=== PATIENT | male | born 1945 | race Caucasian/White ===

== ENCOUNTER 2018-10-14 12:34 | Emergency (ER) | payer MEDICARE, OTHER ==
--- NOTE | 2018-10-14 12:51 | EDM.PDOC ---
ED HPI GENERAL MEDICAL PROBLEM - General Chief Complaint: Chest Pain Stated Complaint: [place] Time Seen by Provider: 10/14/18 12:43 Source of Information: Reports: Patient, EMS, Family, RN Notes Reviewed History Limitations: Reports: No Limitations - History of Present Illness INITIAL COMMENTS - FREE TEXT/NARRATIVE: 72-year-old gentleman presents to the emergency department today with complaint of chest pain he describes the pain as squeezing center of his chest pain occurred while he was sitting watching TV was not exerting himself, he did take an aspirin by himself, EMS services were called they provided 1 nitroglycerin and 100 g of fentanyl he is pain-free at this time. He has known history of COPD but believes he was not any more short of breath than usual no nausea vomiting no diaphoresis does have a history of coronary artery bypass grafting approximately 20 years ago last stress test he believes was probably 10 years ago - Related Data Allergies Allergy/AdvReac Type Severity Reaction Status Date / Time No Known Allergies Allergy Verified 10/14/18 12:46 Home Meds: Home Meds *Atorvastatin 10/14/18 [History] *Lisinopril 10/14/18 [History] *Naproxen 10/14/18 [History] Past Medical History Cardiovascular History: Reports: Bypass, CAD, High Cholesterol, Hypertension Respiratory History: Reports: COPD Endocrine/Metabolic History: Reports: Diabetes, Type II Social & Family History - Tobacco Use Smoking Status *Q: Former Smoker Used Tobacco, but Quit: Yes Month/Year Tobacco Last Used: 0 - Recreational Drug Use Recreational Drug Use: No ED ROS GENERAL - Review of Systems Review Of Systems: See Below Constitutional: Reports: No Symptoms HEENT: Reports: No Symptoms Respiratory: Reports: Shortness of Breath Cardiovascular: Reports: Chest Pain, Dyspnea on Exertion GI/Abdominal: Reports: No Symptoms : Reports: No Symptoms Musculoskeletal: Reports: No Symptoms Skin: Reports: No Symptoms Neurological: Reports: No Symptoms ED EXAM, GENERAL - Physical Exam Exam: See Below Free Text/Narrative:: General: Male, not in any distress, alert and oriented x3 HEENT: head is atraumatic normocephalic, eyes pupils equal round reactive to light, sclera clear no conjunctivitis appreciated. Ears tympanic membranes clear and rangel landmarks and light reflex are present bilaterally canals are clear. Nose no septal deviation, nares are clear, no blood present. Mouth mucosa is moist and pink no erythema or exudate noted in soft palate, tongue is midline uvula is midline, dentition is intact. Neck: Supple no thyromegaly no tracheal deviation. Nodes: Cervical nodes subclavicular nodes nontender no palpable lymphadenopathy noted. Lungs: clear to auscultation bilaterally with symmetrical respirations, no adventitious noise appreciated. CV: Regular rate and rhythm S1 and S2 appreciated no murmurs rubs or gallops noted. Abdomen: Soft, nontender, no palpable masses or organomegaly appreciated, no distention no guarding bowel sounds are present, . Neuro: Cranial nerves II through XII intact, GCS 15 Skin: Warm and dry, intact Extremities: No lower extremity edema appreciated, Course - Vital Signs Last Recorded V/S: Last Vital Signs Temp 97.0 F 10/14/18 12:51 Pulse 89 10/14/18 16:27 Resp 20 10/14/18 16:27 BP 146/78 H 10/14/18 16:27 Pulse Ox 95 10/14/18 16:27 - Orders/Labs/Meds Orders: Active Orders 24 hr Category Date Time Status Cardiac Monitoring [RC] .As Directed Care 10/14/18 12:47 Active Cardiac Monitoring [RC] STAT Care 10/14/18 16:37 Active Communication Order [RC] Per Unit Routine Care 10/14/18 16:37 Active Communication Order [RC] Per Unit Routine Care 10/14/18 16:37 Active EKG Documentation Completion [RC] ASDIRECTED Care 10/14/18 14:03 Active Heparin Sodium/D5W [Heparin 25,000 Units in D5W 500 ML] Med 10/14/18 16:45 Active 25,000 units in 500 ml IV TITRATE Nitroglycerin 25 MG in D5W @ 10 MCG/MIN(250ml) Premix Med 10/14/18 17:00 Ordered Nitroglycerin/D5W [Nitroglycerin 25 MG/D5W 250 ML] 25 mg in 250 ml IV TITRATE Sodium Chloride 0.9% [Saline Flush] Med 10/14/18 12:47 Active 10 ml FLUSH ASDIRECTED PRN Saline Lock Insert [OM.PC] Stat Oth 10/14/18 12:47 Ordered EKG 12 Lead [EK] Stat Ther 10/14/18 14:03 Ordered Medication Orders Heparin Sodium/Dextrose (Heparin 25,000 Units In D5w 500 Ml) 25,000 units in 500 mls @ 32.659 mls/hr IV TITRATE JANAY; Protocol Nitroglycerin/Dextrose (Nitroglycerin 25 Mg/D5w 250 Ml) 25 mg in 250 mls @ 6 mls/hr IV TITRATE JANAY; Protocol Sodium Chloride (Saline Flush) 10 ml FLUSH ASDIRECTED PRN PRN Reason: Keep Vein Open Last Admin: 10/14/18 15:50 Dose: 10 ml Admin: 10/14/18 12:54 Dose: 10 ml Labs: Laboratory Tests 10/14/18 10/14/18 10/14/18 Range/Units 13:06 13:06 16:00 WBC 6.8 (4.5-11.0) K/uL RBC 5.17 (4.30-5.90) M/uL Hgb 15.5 H (12.0-15.0) g/dL Hct 45.0 (40.0-54.0) % MCV 87 (80-98) fL MCH 30 (27-31) pg MCHC 34 (32-36) % Plt Count 233 (150-400) K/uL Neut % (Auto) 62 (36-66) % Lymph % (Auto) 25 (24-44) % [place] % (Auto) 10 H (2-6) % Eos % (Auto) 2 (2-4) % Baso % (Auto) 1 (0-1) % Sodium 138 L (140-148) mmol/L Potassium 4.4 (3.6-5.2) mmol/L Chloride 99 L (100-108) mmol/L Carbon Dioxide 30 (21-32) mmol/L Anion Gap 13.4 (5.0-14.0) mmol/L BUN 22 H (7-18) mg/dL Creatinine 1.4 H (0.8-1.3) mg/dL Est Cr Clr Drug Dosing 55.49 mL/min Estimated GFR (MDRD) 50 L (>60) Glucose 269 H (74-106) mg/dL Calcium 9.4 (8.5-10.1) mg/dL Total Bilirubin 0.5 (0.2-1.0) mg/dL AST 24 (15-37) U/L ALT 53 (12-78) U/L Alkaline Phosphatase 98 (46-116) U/L CK-MB (CK-2) 1.8 (0-3.6) mg/mL Troponin I 0.028 0.220 H* (0.000-0.056) ng/mL Total Protein 7.2 (6.4-8.2) g/dL Albumin 3.7 (3.4-5.0) g/dL Globulin 3.5 (2.3-3.5) g/dL Albumin/Globulin Ratio 1.1 L (1.2-2.2) Meds: Medications Generic Name Dose Route Start Last Admin Trade Name Freq PRN Reason Stop Dose Admin Heparin Sodium/Dextrose 25,000 units in 500 mls @ 32.659 mls/hr 10/14/18 16: 45 Heparin 25,000 Units In D5w 500 Ml IV TITRATE JANAY Protocol 12 UNITS/KG/HR Nitroglycerin/Dextrose 25 mg in 250 mls @ 6 mls/hr 10/14/18 17:00 Nitroglycerin 25 Mg/D5w 250 Ml IV TITRATE JANAY Protocol 10 MCG/MIN Sodium Chloride 10 ml 10/14/18 12:47 10/14/18 15:50 Saline Flush FLUSH 10 ml ASDIRECTED PRN Administration Keep Vein Open Discontinued Medications Generic Name Dose Route Start Last Admin Trade Name Freq PRN Reason Stop Dose Admin Clopidogrel Bisulfate 300 mg 10/14/18 16:37 10/14/18 16:42 Plavix PO 10/14/18 16:38 300 mg ONETIME ONE Administration Heparin Sodium (Porcine) 4,000 units 10/14/18 16:37 10/14/18 16:43 Heparin Sodium IVPUSH 10/14/18 16:38 4,000 units ONETIME ONE Administration Morphine Sulfate 2 mg 10/14/18 14:02 10/14/18 14:13 Morphine IVPUSH 10/14/18 14:03 2 mg ONETIME ONE Administration Morphine Sulfate 2 mg 10/14/18 15:18 10/14/18 15:49 Morphine IVPUSH 10/14/18 15:19 2 mg ONETIME ONE Administration - Re-Assessments/Exams Free Text/Narrative Re-Assessment/Exam: 10/14/18 14:00 heart score of 6 Departure - Departure Time of Disposition: 16:57 Disposition: Home, Self-Care 01 Reason for Transfer *Q: Primary PCI Indicated Condition: Fair Clinical Impression: Non-ST elevation myocardial infarction (NSTEMI) Referrals: PCP,None [Primary Care Provider] - Forms: ED Department Discharge - My Orders Last 24 Hours: My Active Orders 10/14/18 12:47 Cardiac Monitoring [RC] .As Directed Sodium Chloride 0.9% [Saline Flush] 10 ml FLUSH ASDIRECTED PRN Saline Lock Insert [OM.PC] Stat 10/14/18 14:03 EKG Documentation Completion [RC] ASDIRECTED EKG 12 Lead [EK] Stat 10/14/18 16:37 Cardiac Monitoring [RC] STAT Communication Order [RC] Per Unit Routine Communication Order [RC] Per Unit Routine 10/14/18 16:45 Heparin Sodium/D5W [Heparin 25,000 Units in D5W 500 ML] 25,000 units in 500 ml IV TITRATE 10/14/18 17:00 Nitroglycerin 25 MG in D5W @ 10 MCG/MIN(250ml) Premix Nitroglycerin/D5W [ Nitroglycerin 25 MG/D5W 250 ML] 25 mg in 250 ml IV TITRATE - Assessment/Plan Last 24 Hours: My Active Orders 10/14/18 12:47 Cardiac Monitoring [RC] .As Directed Sodium Chloride 0.9% [Saline Flush] 10 ml FLUSH ASDIRECTED PRN Saline Lock Insert [OM.PC] Stat 10/14/18 14:03 EKG Documentation Completion [RC] ASDIRECTED EKG 12 Lead [EK] Stat 10/14/18 16:37 Cardiac Monitoring [RC] STAT Communication Order [RC] Per Unit Routine Communication Order [RC] Per Unit Routine 10/14/18 16:45 Heparin Sodium/D5W [Heparin 25,000 Units in D5W 500 ML] 25,000 units in 500 ml IV TITRATE 10/14/18 17:00 Nitroglycerin 25 MG in D5W @ 10 MCG/MIN(250ml) Premix Nitroglycerin/D5W [ Nitroglycerin 25 MG/D5W 250 ML] 25 mg in 250 ml IV TITRATE Plan: Assessment Acuity = acute Site and laterality = non-ST elevation myocardial infarction complicated patient with known history of hypertension and dyslipidemia also hyperglycemia Etiology = probable coronary artery disease Manifestations = chest pain Location of injury = Home Lab values = creatinine elevated 1.4 consistent with chronic renal failure stage G IIIB troponin initial was 0.028 and follow-up was 0.22 glucose elevated 268 EKG demonstrates sinus rhythm I don't appreciate any ST changes with depressions or elevation chest x-ray no acute process Plan discussed case with Dr. Cole kindly accept the patient in transport 300 mg Plavix has been given, heparin drip for thousand bolus all initiated nitro drip also initiated will be transported via EMS ground, aspirin given at home This note was dictated using [employer] voice recognition software please call with any questions on syntax or grammar.
[2018-10-14] MEDS: Sodium Chloride 0.9% 10 ML Syringe FLUSH PRN ×2 (12:54→15:50)
[2018-10-14] MEDS ORDERED: Morphine 2 MG/ML Syringe IVPUSH ONE ×2 (14:02→15:18)
--- NOTE | 2018-10-14 14:57 | CRLCR ---
INDICATION: Chest pain TECHNIQUE: Chest radiograph 1 view COMPARISON: None FINDINGS: Moderate degradation of image quality noted due to body habitus. Mediastinum: Previous median sternotomy and coronary artery bypass grafting (CABG) noted. Moderate discoid atelectasis present in the lung bases bilaterally. Mild perihilar atelectasis is also noted. The heart silhouette is normal in size and morphology. Lung: Both lungs are unremarkable in appearance. No sign of pleural effusion seen. No pneumothorax is identified. Musculoskeletal: Unremarkable for age. IMPRESSION: 1. Previous median sternotomy and coronary artery bypass grafting (CABG) noted. Moderate discoid atelectasis present in the lung bases bilaterally. Mild perihilar atelectasis is also noted. Dictated by Charles Sosa MD @ 10/14/2018 2:55:32 PM Dictated by: Charles Sosa MD @ 10/14/2018 14:55:37 (Electronically Signed)
[2018-10-14] MEDS ORDERED: Heparin Sodium 5,000 Units/ML Vial IVPUSH ONE (16:37)
[2018-10-14] MEDS ORDERED: Clopidogrel 75 MG Tab PO ONE (16:37)
[2018-10-14] MEDS ORDERED: Heparin Sodium/D5W 25,000 UNITS/500 ML BAG IV SCH (16:45)
[2018-10-14] MEDS ORDERED: Nitroglycerin/D5W 25 MG/250 ML BOTTLE IV SCH (17:00)
== END 2018-10-14 18:02 | disposition home or self-care (01) ==
LOC: JP.ED 12:34
DX: I21.4 Non-ST elevation (NSTEMI) myocardial infarction (principal); E78.00 Pure hypercholesterolemia, unspecified; I10 Essential (primary) hypertension; Z87.891 Personal history of nicotine dependence; Z95.1 Presence of aortocoronary bypass graft
CPT/HCPCS: 36415; 71045; 80053; 82553; 84484; 85025; 93005; 96374; 96375; 96376; 99285-25; A9270-GY; J1644; J2270; J3490

== ENCOUNTER 2021-04-05 09:21 | Emergency (ER) | payer OTHER, MEDICARE ==
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
[2021-04-05] MEDS: Albuterol/Ipratropium 3.0-0.5 MG/3 ML Neb Soln NEB ONE (10:14)
[2021-04-05] MEDS: methylPREDNISolone Sodium Succinate 125 MG/2 ML SDV IVPUSH ONE (11:06)
--- NOTE | 2021-04-05 11:08 | CR ---
CHEST: 2 view CLINICAL HISTORY:Dyspnea COMPARISON:None FINDINGS: Patient has had previous sternotomy. The heart size, pulmonary vascularity and hilar structures are normal. Lungs are hyperaerated. There is some patchy density in both infrahilar regions. This is greater on the right. There are atherosclerotic changes in the aorta. IMPRESSION: Patchy bibasal opacities is suspect for pneumonia. Clinical correlation necessary Hyperaeration
== END 2021-04-05 11:12 | disposition home or self-care (01) ==
LOC: JP.ED 09:21
DX: J44.1 Chronic obstructive pulmonary disease with (acute) exacerbation (principal); I10 Essential (primary) hypertension; E78.00 Pure hypercholesterolemia, unspecified; I25.2 Old myocardial infarction; E11.9 Type 2 diabetes mellitus without complications; E66.9 Obesity, unspecified; Z79.02 Long term (current) use of antithrombotics/antiplatelets; Z79.84 Long term (current) use of oral hypoglycemic drugs; Z79.899 Other long term (current) drug therapy; Z87.891 Personal history of nicotine dependence; Z68.38 Body mass index [BMI] 38.0-38.9, adult
CPT/HCPCS: 71046; 94640; 96374; 99285; J2930; J7620-GY